=== PATIENT | female | born 1940 | race Caucasian/White ===

== ENCOUNTER 2019-09-28 14:07 | Emergency (ER) | payer OTHER ==
[~2019-09-28] VITALS: Ht 152.4 cm; Wt 63.5 kg
[2019-09-28 14:34] VITALS: BP 148/81
--- NOTE | 2019-09-28 14:40 | NUR ---
PT TAKEN TO BED 8.
--- NOTE | 2019-09-28 15:07 | NUR ---
Patient being evaluated by Dr. Padilla at bedside.
[2019-09-28] MEDS ORDERED: HYDROcodone/APAP 5/325 MG 1 TAB TAB PO ONE (15:35)
--- NOTE | 2019-09-28 15:35 | NUR ---
PT PRESENTS TO THE ED WITH C/O HEADACHE, SORE THROAT, COUGH X3 DAYS. PT STATES THAT SHE HAS A SAUER AND SORE THROAT AND RATES PAIN 5/10 AT THIS TIME. PT DENIES N/V/D AT THIS TIME. PT STATES COUGH IS NON PRODUCTIVE. SKIN IS WARM, PINK, AND DRY. PT PRESENTS WITH A CLEAR SPEECH AND IS CONVERSING APPROPRIATELY. LUNGS CLEAR BILATERALLY. PT POSITIONED FOR COMFORT. HOB ELEVATED. DAUGHTER AT BEDSIDE. ER MD AWARE OF PT STATUS. NKA HX: HTN, DM, HIGH CHOLESTEROL RX: PT CANNOT RECALL MED NAMES
--- NOTE | 2019-09-28 16:35 | NUR ---
Patient discharged with v/s stable. Written and verbal after care instructions given and explained. Patient alert, oriented and verbalized understanding of instructions. Ambulatory with steady gait. All questions addressed prior to discharge. ID band removed. Patient advised to follow up with PMD. Rx of PROMETHAZINE HYDROCHLORIDE given. Patient educated on indication of medication including possible reaction and side effects. Opportunity to ask questions provided and answered.
[2019-09-28 16:36] VITALS: BP 148/81
== END 2019-09-28 16:35 | disposition home or self-care (01) ==
LOC: MED 14:07
DX: B34.9 Viral infection, unspecified (principal); E11.9 Type 2 diabetes mellitus without complications; I10 Essential (primary) hypertension; Z90.49 Acquired absence of other specified parts of digestive tract
CPT/HCPCS: 71045; 99283; Q0092